=== PATIENT | male | born 1960 | race Asian ===

== ENCOUNTER 2020-10-18 06:59 | Day surgery (SDC) | payer OTHER, SELFPAY ==
[~2020-10-18] VITALS: Ht 172.7 cm; Wt 75.7 kg
[2020-10-18] MEDS ORDERED: fentaNYL citrate 0.05 MG/ML VIAL ONE (08:45)
[2020-10-18] MEDS ORDERED: diphenhydrAMINE 50 MG/ML VIAL ONE (08:45)
[2020-10-18] MEDS ORDERED: MIDAZOLAM 5 MG/5 ML VIAL ONE (08:45)
[2020-10-18] MEDS ORDERED: fentaNYL citrate 0.05 MG/ML VIAL IVP ONE (10:10)
[2020-10-18] MEDS ORDERED: MIDAZOLAM 2 MG/2 ML VIAL IVP ONE (10:10)
== END 2020-10-18 10:00 | disposition home or self-care (01) ==
LOC: MDS 06:59 → MMU 06:59 → MDS 10:00
PROVIDERS: ATTEND Internal Medicine Gastroenterology
DX: R10.9 Unspecified abdominal pain (principal); K29.50 Unspecified chronic gastritis without bleeding; K20.90 Esophagitis, unspecified without bleeding
CPT/HCPCS: 43239; J2250; J3010; U0003; J1200